=== PATIENT | female | born 1945 | race Asian ===

== ENCOUNTER 2021-07-08 06:29 | Day surgery (SDC) | payer OTHER, SELFPAY ==
[~2021-07-08] VITALS: Ht 152.4 cm; Wt 66.2 kg
[2021-07-08] MEDS ORDERED: CEFAZOLIN 1 GM IVPB PREMIX 50 ML IV ONE (07:00)
[2021-07-08] MEDS ORDERED: PROPOFOL 200MG/ 20ML VIAL (DIPRIVAN) IV ONE (07:30)
[2021-07-08] MEDS ORDERED: DEXAMETHASONE SOD PHOSPHATE 4 MG/ML VIAL IVP ONE (07:30)
[2021-07-08] MEDS ORDERED: SEVOFLURANE 15 MIN GAS INH ONE (07:30)
[2021-07-08] MEDS ORDERED: NS IRRIG SOLN 1000 ML IR ONE (07:30)
[2021-07-08] MEDS ORDERED: MIDAZOLAM HCL 5 MG/5 ML VIAL IVP ONE (07:30)
[2021-07-08] MEDS ORDERED: fentaNYL CITRATE/PF 100 MCG/2 ML AMP IVP ONE (07:30)
[2021-07-08] MEDS ORDERED: ONDANSETRON HCL 4 MG/2 ML VIAL IVP ONE (07:30)
[2021-07-08] MEDS ORDERED: LR 1,000 ML IV.SOLN IV ONE (07:30)
[2021-07-08] MEDS ORDERED: hydrALAZINE HCL 20 MG/ML VIAL IVP PRN (08:45)
[2021-07-08] MEDS ORDERED: METOCLOPRAMIDE HCL 10 MG/2 ML VIAL IVP PRN (08:45)
[2021-07-08] MEDS ORDERED: HYDROmorphone 1 MG/ML INJ. CARTRIDGE IVP PRN ×2 (08:45→10:15)
[2021-07-08] MEDS ORDERED: MIDAZOLAM HCL 5 MG/5 ML VIAL IVP PRN (08:45)
[2021-07-08] MEDS ORDERED: KETOROLAC TROMETHAMINE 30 MG VIAL IVP PRN (08:45)
[2021-07-08] MEDS ORDERED: ACETAMINOPHEN 325 MG TABLET PO PRN (10:15)
[2021-07-08] MEDS ORDERED: HYDROcodone/ACETAMIN 5-325 MG TAB (NORCO/ VICODIN) PO PRN ×2 (10:15)
[2021-07-08] MEDS ORDERED: ONDANSETRON HCL 4 MG/2 ML VIAL IVP PRN (10:15)
[2021-07-08] MEDS: HYDROmorphone 2 MG/ML VIAL ONE ×3 (11:01→18:22)
[2021-07-08 12:00] VITALS: BP_SYST 139
[2021-07-08 12:39] VITALS: BP_SYST 139
[2021-07-08 16:00] VITALS: BP_SYST 132
[2021-07-08] MEDS: D5/0.45 NS 1,000 ML IV SCH (16:38)
[2021-07-08] MEDS: CEFAZOLIN 1 GM IVPB PREMIX 50 ML IV SCH ×2 (16:38→21:05)
[2021-07-08 20:00] VITALS: BP_SYST 134
[2021-07-08] MEDS: FAMOTIDINE PF 20 MG/2 ML VIAL IVP SCH (21:05)
[2021-07-08 21:13] LABS: BILIRUBIN,URINE NEGATIVE (NEGATIVE); CLARITY/URINE CLEAR (CLEAR); COLOR,URINE YELLOW (YELLOW); GLUCOSE,URINE TRACE (NEGATIVE); KETONES,URINE NEGATIVE (NEGATIVE); LEUKOCYTE ESTERASE ,URINE TRACE (NEGATIVE); NITRITE, URINE NEGATIVE (NEGATIVE); PH,URINE 7.5 (5.0-8.0); PROTEIN URINE NEGATIVE (NEGATIVE); UROBILINOGEN,URINE 0.2 (0.2-1.0)
[2021-07-08 21:28] LABS: BLOOD, URINE TRACE (NEGATIVE)
[2021-07-08 22:16] LABS: BACTERIA,URINE MODERATE /HPF (None Seen); RBC,URINE 0-3 /HPF (0-3); YEAST,URINE None Seen /HPF (None Seen)
[2021-07-08 22:17] LABS: CALCIUM OXALATE CRYSTALS,UR None Seen /HPF (None Seen); CALCIUM PHOSPHATE CRYSTALS,UR None Seen /HPF (None Seen); TRICHOMONAS,URINE None Seen /HPF (None Seen)
[2021-07-08 22:18] LABS: COARSE GRANULAR CASTS,URINE None Seen /LPF (None Seen); FINE GRANULAR CASTS,URINE None Seen /LPF (None Seen); HYALINE CASTS, URINE None Seen /LPF (None Seen); MUCUS,URINE None Seen /LPF (None Seen); OTHER CASTS, URINE None Seen /LPF (None Seen); OTHER CRYSTALS,URINE None Seen /HPF (None Seen); TRIPLE PHOSPHATE CRYSTAL,UR None Seen /HPF (None Seen); URIC ACID CRYSTALS,URINE None Seen /HPF (None Seen); URINE AMORPHOUS PHOSPHATES None Seen /HPF (None Seen); URINE AMORPHOUS URATE None Seen /HPF (None Seen); WAXY CASTS,URINE None Seen /LPF (None Seen)
[2021-07-09] VITALS: BP_SYST 127
[2021-07-09] MEDS: D5/0.45 NS 1,000 ML IV SCH (06:30)
[2021-07-09 08:00] VITALS: BP_SYST 132
[2021-07-09] MEDS: FAMOTIDINE PF 20 MG/2 ML VIAL IVP SCH (09:09)
[2021-07-09 12:47] VITALS: BP_SYST 123
== END 2021-07-09 14:45 | disposition home or self-care (01) ==
LOC: SDS 06:29 → SMU 06:32 → SDS 07-09 14:45
PROVIDERS: ATTEND Colon & Rectal Surgery
DX: C50.912 Malignant neoplasm of unspecified site of left female breast (principal); I12.9 Hypertensive chronic kidney disease with stage 1 through stage 4 chronic kidney disease, or unspecified chronic kidney disease; E11.22 Type 2 diabetes mellitus with diabetic chronic kidney disease; N18.30 Chronic kidney disease, stage 3 unspecified; E78.5 Hyperlipidemia, unspecified; F41.9 Anxiety disorder, unspecified; F32.9 Major depressive disorder, single episode, unspecified; Z20.822 Contact with and (suspected) exposure to COVID-19; Z79.899 Other long term (current) drug therapy
CPT/HCPCS: 71045; 81000; 87086; 88304; 88305; 88307; J0690; J1100; J1170; J2250; J2405; J2704; J3010; J3490; J7120; U0003

== ENCOUNTER 2021-09-02 06:24 | Day surgery (SDC) | payer OTHER, SELFPAY ==
[~2021-09-02] VITALS: Ht 152.4 cm; Wt 57.6 kg
[2021-09-02] MEDS ORDERED: ONDANSETRON HCL 4 MG/2 ML VIAL IVP ONE (06:25)
[2021-09-02] MEDS ORDERED: SEVOFLURANE 15 MIN GAS INH ONE (06:25)
[2021-09-02] MEDS ORDERED: PROPOFOL 200MG/ 20ML VIAL (DIPRIVAN) IV ONE (06:25)
[2021-09-02] MEDS ORDERED: DEXAMETHASONE SOD PHOSPHATE 4 MG/ML VIAL IVP ONE (06:25)
[2021-09-02] MEDS ORDERED: LIDOCAINE PF 1%, 20 MG/2 ML AMP INJ ONE (06:25)
[2021-09-02] MEDS ORDERED: DIPHENHYDRAMINE INJ 50 MG/ML VIAL IVP ONE (06:25)
[2021-09-02] MEDS ORDERED: NS 1000 ML IV.SOLN IV ONE (06:25)
[2021-09-02] MEDS ORDERED: BUPIVACAINE /EPINEPHRINE/PF 0.25% 30 ML VIAL INJ ONE (06:25)
[2021-09-02] MEDS ORDERED: HEPARIN SODIUM,PORCINE/NS/PF 1,000 UNITS/500 ML BAG IV ONE (06:25)
[2021-09-02] MEDS ORDERED: fentaNYL CITRATE/PF 100 MCG/2 ML AMP IVP ONE (06:25)
[2021-09-02] MEDS ORDERED: MIDAZOLAM HCL 5 MG/5 ML VIAL IVP ONE (06:25)
[2021-09-02] MEDS ORDERED: CEFAZOLIN SOD 1 GM in D5W 50 ML IV ONE (07:00)
[2021-09-02] MEDS ORDERED: LR 1,000 ML IV SCH (08:15)
[2021-09-02] MEDS ORDERED: MEPERIDINE HCL/PF 25 MG/ML DISP.SYRIN IVP PRN (08:15)
[2021-09-02] MEDS ORDERED: METOCLOPRAMIDE HCL 10 MG/2 ML VIAL IVP PRN (08:15)
[2021-09-02] MEDS ORDERED: MIDAZOLAM HCL 2 MG/2 ML VIAL (VERSED) IVP PRN (08:15)
[2021-09-02] MEDS ORDERED: HYDROmorphone 1 MG/ML INJ. CARTRIDGE IVP PRN ×2 (08:15)
[2021-09-02] MEDS ORDERED: D5/0.45 NS 1,000 ML IV SCH (09:00)
[2021-09-02 13:23] VITALS: BP_SYST 126
== END 2021-09-02 11:40 | disposition home or self-care (01) ==
LOC: SDS 06:24 → SMU 06:26 → SDS 11:40
PROVIDERS: ATTEND Colon & Rectal Surgery
DX: C50.912 Malignant neoplasm of unspecified site of left female breast (principal); E11.22 Type 2 diabetes mellitus with diabetic chronic kidney disease; N18.6 End stage renal disease; F41.9 Anxiety disorder, unspecified; E78.5 Hyperlipidemia, unspecified; Z79.899 Other long term (current) drug therapy
CPT/HCPCS: 36561; 71045; 77001; 82948; 82962; C1788; J0690; J1100; J1200; J1644; J2001; J2250; J2405; J2704; J3010; J3490; J7030; J7060; U0003; 76000